=== PATIENT | female | born 1975 ===

== ENCOUNTER → 2024-07-27 | Outpatient (CLI) | payer MEDICAID, SELFPAY ==
--- NOTE | 2024-07-27 15:15 | XR_ITS ---
Examination: Diagnostic digital mammography, unilateral, left Computer aided detection 3-D breast Tomosynthesis, unilateral Date and time of exam: July 27, 2024 1507 hours INDICATIONS: Mammogram August 31, 2023 4 mm round mass nipple level left breast posterior depth Technique: Nonmagnified MLO, CC views of the left breast have been obtained, reconstructed from 3-D Tomosynthesis images. R2 computer aided detection program utilized for evaluation of suspicious masses and/or abnormal calcifications. 3-D Tomosynthesis images obtained. Findings: Scattered areas of fibroid rather density. No definite suspicious mass Impression: BI-RADS category 0: Incomplete: Need additional imaging evaluation Follow-up left breast sonography is still needed
== END | disposition home or self-care (01) ==
DX: R92.8 Other abnormal and inconclusive findings on diagnostic imaging of breast (principal)
CPT/HCPCS: 77061; 77065; G0279

== ENCOUNTER → 2024-08-02 | Outpatient (CLI) | payer MEDICAID, SELFPAY ==
--- NOTE | 2024-08-02 16:00 | XR_ITS ---
Examination: Pelvic ultrasound, transabdominal, complete Technique: Transabdominal ultrasound of the pelvis performed using grayscale imaging Date and time of exam: August 02, 2024 1622 hrs. Indications: Recurrent pelvic pain beginning one month ago Findings: Uterus 9.5 cm benign cervical cyst Endometrial stripe 0.7 cm No uterine mass Right ovary 3.8 cm arterial flow 18 mm follicle Left ovary 2.2 cm arterial flow Impression: No uterine mass or intrauterine gestation
== END | disposition home or self-care (01) ==
DX: R10.2 Pelvic and perineal pain (principal)
CPT/HCPCS: 76856

== ENCOUNTER → 2024-08-12 | Outpatient (CLI) | payer MEDICAID, SELFPAY ==
--- NOTE | 2024-08-12 14:00 | XR_ITS ---
Examination: Breast ultrasound, unilateral, left complete Date and time of exam: August 12, 2024 1441 hours INDICATIONS: Mammogram August 31, 2023 4 mm round mass nipple level left breast posterior depth Technique: Real-time cook scale ultrasonographic imaging performed left breast including all 4 quadrants as well as nipple retroareolar and axillary region. Findings: 5:00 cyst 3 x 2 x 3 mm No solid nodules IMPRESSION: BI-RADS Category 2: Benign findings
== END | disposition home or self-care (01) ==
LOC: CDIM 14:22
PROVIDERS: PCP Obstetrics & Gynecology; Referring Provider Obstetrics & Gynecology; Visit Provider Obstetrics & Gynecology
DX: R92.342 Mammographic extreme density, left breast (principal)
CPT/HCPCS: 76641